=== PATIENT | male | born 1970 | race African-American/Black ===

== ENCOUNTER 2017-04-18 17:03 | Emergency (ER) | payer MEDICAID, MEDICARE ==
[~2017-04-18] VITALS: Ht 154.9 cm; Wt 88.3 kg
[~2017-04-18 17:03] MED LIST: CARV25 PO; HYDR-4173 PO; INSLAN SQ; INSU100C4 SQ; ISOS30TA6 PO; MAGN400T6 PO; MYCO500T PO; NIFE60TA71 PO; OLAN15TA2 PO; PRED5 PO; SIMV-261 PO; TACR5CAP PO; [UNRECOGNIZED DRUG - CODE] TD
[2017-04-18] MEDS ORDERED: CloNIDine HCL 0.2 MG TABLET PO ONE (17:45)
[2017-04-18] MEDS ORDERED: SODIUM CHLORIDE 0.9% 1,000 ML IV ONE ×2 (17:45→19:15)
[2017-04-18] MEDS ORDERED: INSULIN REGULAR, HUMAN 100 UNITS/ML IVP ONE (17:45)
[2017-04-18 18:51] LABS: ALBUMIN 3.1 g/dL (3.4-5.0); BASOPHILS % (AUTO) 0.4 % (0.0-2.0); BILIRUBIN,TOTAL 0.5 mg/dL (0.1-1.0); CALCIUM, TOTAL 9.5 mg/dL (8.8-10.5); CREATININE 2.21 mg/dL (0.60-1.30); EOSINOPHILS % (AUTO) 4.4 % (1.0-6.0); HEMATOCRIT 36.2 % (41-53); HEMOGLOBIN 11.7 g/dL (13.5-17.5); LYMPHOCYTES # (AUTO) 1.3 K/uL (1.0-4.8); LYMPHOCYTES % (AUTO) 17.3 % (22.0-44.0); MEAN CORPUSCULAR HEMOGLOBIN 23.3 pg (26.0-34.0); MEAN CORPUSCULAR HGB CONC 32.4 G/dL (31.0-37.0); MEAN CORPUSCULAR VOLUME 72 fL (80-100); MONOCYTES # (AUTO) 0.8 K/uL (0.1-1.0); MONOCYTES % (AUTO) 10.8 % (2.0-9.0); NEUTROPHILS # (AUTO) 5.1 K/uL (1.8-7.7); NEUTROPHILS % (AUTO) 67.1 % (40.0-70.0); PLATELET COUNT (AUTO) 395 K/uL (150-450); POTASSIUM 3.2 mmol/L (3.5-5.1); RED BLOOD CELL COUNT(AUTO) 5.03 MIL/uL (4.50-5.90); RED CELL DISTRIBUTION WIDTH 17.3 % (11.5-14.5); TOTAL PROTEIN, SERUM 8.1 g/dL (6.4-8.2)
[2017-04-18 19:07] LABS: GLUCOSE,POINT OF CARE 271 MG/DL (70-110)
[2017-04-18 19:57] LABS: APPEARANCE,URINE CLEAR (CLEAR); BILIRUBIN,URINE NEGATIVE (NEGATIVE); GLUCOSE, URINE (UA) >=1000 mg/dL (NEGATIVE); KETONES,URINE TRACE mg/dL (NEGATIVE); LEUKOCYTE ESTERASE ,URINE NEGATIVE (NEGATIVE); NITRATE,URINE NEGATIVE (NEGATIVE); OCCULT BLOOD,URINE NEGATIVE (NEGATIVE); PH,URINE 5.5 (5.0-8.0); PROTEIN,URINE POS 1+ (NEGATIVE); UROBILINOGEN,URINE 0.2 mg/dL (<=1.0)
[2017-04-18 20:00] LABS: AMPHET/METH SCREEN,URINE NEGATIVE (NEGATIVE); BARBITURATE SCREEN, URINE NEGATIVE (NEGATIVE); BENZODIAZEPINES SCREEN,URINE NEGATIVE (NEGATIVE); CANNABINOID SCREEN,URINE POSITIVE (NEGATIVE); COCAINE SCREEN,URINE NEGATIVE (NEGATIVE); METHADONE SCREEN, URINE NEGATIVE (NEGATIVE); OPIATE SCREEN,URINE NEGATIVE (NEGATIVE); PHENCYCLIDINE SCREEN,URINE NEGATIVE (NEGATIVE)
[2017-04-18 20:05] LABS: FINE GRANULAR CASTS,URINE 0-2 /LPF (None Seen); SQUAMOUS EPITHELIAL CELL,UR Rare /LPF (None Seen)
[2017-04-18 20:07] LABS: BACTERIA,URINE Few /HPF (None Seen); RBC,URINE 0-2 /HPF (0-2)
[2017-04-18 20:21] VITALS: BP 120/77
== END 2017-04-18 21:02 | disposition home or self-care (01) ==
LOC: EMS 17:07
DX: E11.65 Type 2 diabetes mellitus with hyperglycemia (principal); N28.9 Disorder of kidney and ureter, unspecified; I11.9 Hypertensive heart disease without heart failure; Z79.4 Long term (current) use of insulin
CPT/HCPCS: 36415; 71010; 80053; 80307; 81001; 82962; 85025; 93005; 96360; 96361; 96374; 99285; J1815; J7030

== ENCOUNTER 2017-04-18 22:23 | Emergency (ER) | payer MEDICARE ==
[~2017-04-18] VITALS: Ht 160 cm; Wt 88.3 kg
[2017-04-19] MEDS ORDERED: MECLIZINE HCL 25 MG TABLET PO ONE (00:15)
[2017-04-19] MEDS ORDERED: SODIUM CHLORIDE 0.9% 1,000 ML IV ONE (00:15)
[2017-04-19 00:22] LABS: GLUCOSE,POINT OF CARE 321 MG/DL (70-110)
[2017-04-19] MEDS ORDERED: INSULIN REGULAR, HUMAN 100 UNITS/ML SQ ONE (02:00)
[2017-04-19 03:16] VITALS: BP 154/101
[2017-04-19 03:22] LABS: GLUCOSE,POINT OF CARE 264 MG/DL (70-110)
== END 2017-04-19 04:39 | disposition home or self-care (01) ==
LOC: EMS 22:25
DX: R42 Dizziness and giddiness (principal); E10.65 Type 1 diabetes mellitus with hyperglycemia; I12.9 Hypertensive chronic kidney disease with stage 1 through stage 4 chronic kidney disease, or unspecified chronic kidney disease; E10.22 Type 1 diabetes mellitus with diabetic chronic kidney disease; Z59.0 Homelessness; Z79.4 Long term (current) use of insulin; Z94.0 Kidney transplant status
CPT/HCPCS: 82962; 96372; 99283; J1815